=== PATIENT | female | born 1950 | race Caucasian/White ===

== ENCOUNTER → 2017-06-20 | Outpatient (CLI) | payer OTHER ==
--- NOTE | 2017-06-21 07:38 | PAP/PSG TECHNICIAN REPORT ---
[facility] Customer Support Manager Polysomnogram Report Study name: None Report date: 06/21/2017 Study date: 06/20/2017 Referring Physician: Migdalia Barber Name: TRACI ENNIS Interpreting Physician: Elsie Harkins M.D. Date of : 1950 Customer Support Manager: Samantha Fontana, PSGT. Sex: Female Age: 67 StudyType: PSG Weight: 222 lbs Height: 67 years, Height 5' 2" Neck Circum:16 inches BMI: 40.6 Medications: Lipitor 10 mg, Vit.D3 2000 units, Cortizone -10, Levoxyl 100 mcg, Potassium Choride ER 10 meq. Patient History 67 year old female with mild GUERO, she is using c-pap at this time @ a rate of 7 cm H20, patient states that she still wakes tired and naps throughout the day. This study was ordered to start at a rate of 5 cm, evaluate oxygen needs as per Medicare guide lines.Ess= 7, Neck = 16 inches Parameters Monitored NPSG: E1-M2, E2-M1, Fp1-M2, Fp2-M1, F3-M2, F4-M2, F4-M1, C3-M2, C4-M2, C4-M1, O1-M2, O2-M2, O2-M1, T3-M2, T4-M1, P3-M2, P4-M1, CHIN1, CHIN2, HR, EKG, Legs, PFLOW, SNOR, FLOW, CFLOW, Tidal Volume, THOR, ABDO, SpO2, PLTH, CPRESS, ETCO2 Wave, ETCO2, pH Sleep Architecture Sleep Stages Time at Lights Off 11:03:46 PM STAGES Time (min.) TST (%) Time at Lights On 5:25:46 AM Wake 17.0 -- Total Recording Time (TRT) 382.00 min. N1 7.0 2 Total Sleep Period (TSP) 373.0 min. N2 243.5 67 Total Sleep Time (TST) 365.0min. N3 36.0 10 Awake Time 17.0 min. REM 78.5 22 Wake after Sleep Onset 8.0 min. Sleep Efficiency (SE) 96 % Sleep Onset Latency (ELENITA) 9.0 min. Number of Stage 1 Shifts None Awakenings 7 Stage Changes 42 Number of REM periods 7 REM 78.5 22 REM Latency 52.5 min. NREM 286.5 78 Body Position Analysis Supine Right Left Side Prone Vertical Total Sleep Time (min.) 381.5 0.0 0.0 0.00 0.0 0.5 Total Sleep Time (%) 100% 0% 0% 0 0% N/A% Total Sleep Time REM (min.) 78.5 0.0 0.0 None 0.0 0.0 Total Sleep Time NREM (min.) 286.5 0.0 0.0 None 0.0 0.0 Intermittent Wake (min.) 16.5 0.0 0.0 None 0.0 0.5 Total Sleep Period (%) 100% None None None None None Arousals Myoclonus (PLM) * Events Count Index Events Count Index Spontaneous 47 8 Events Awake (PLMW) 0 0.0 Respiratory 0 0.0 Events Asleep w/ Arousal (PLMA) 23 3.8 PLM 23 4 Events Asleep w/o Arousal (PLMS) 172 28.3 Snoring 12 2 Total Asleep 195 32.1 Total 82 13 Total 195 31 Respiratory Analysis * CA OA MA CH H RERA Total Count 0 0 0 0 6 0 6 Index 0.0 0.0 0.0 0 1.0 0 1.0 Mean Duration 0.0 0.0 0.0 0.00 13.5 0.0 13.5 Longest Duration 0.0 0.0 0.0 0.00 0.0 0.0 15.7 Respiratory Event Summary Total Supine ~Supine Right Left Prone REM NREM Apneas Count 0 0 N/A N/A N/A N/A 0 0 Index 0.0 0 N/A N/A N/A N/A 0 0 Hypopneas (4% Desat) Count 6 6 N/A N/A N/A N/A 2 4 Index 1.0 1.0 N/A N/A N/A N/A 1.5 0.8 Apneas & All Hypopneas Count 6 6 N/A N/A N/A N/A 2 4 Index 1.0 1 N/A N/A N/A N/A 1.5 0.8 Respiratory Events ([employer]+All Hyp+RERA) Count 6 6 N/A N/A N/A N/A 2 4 Index 1.0 1 N/A N/A N/A N/A 1.5 0.8 Respiratory Related Arousal Count 0 6 N/A N/A N/A N/A 0 0 Index 0.0 0 N/A N/A N/A N/A 0 0 Snoring Analysis Supine Right Left Prone REM NREM Total Snore duration 4.5 min Snores count 114 N/A N/A N/A 4 110 114 Snore mean duration 2.4 Sec Snores index 19 N/A N/A N/A 3.1 23.0 18.7 TST with snoring (%) 1.2% Desaturation Event Summary: Minimum %SpO2 Event Count Mean/Min/Max Duration(sec.) Desaturation Index % Time In Bed > 90 18 29.5 / 12.0 / 53.3 3.2 87.3 86 - 90 1 12.8 / 12.8 / 12.8 1.2 12.7 81 - 85 0 N/A 0.0 0.0 76 - 80 0 N/A 0.0 0.0 71 - 75 0 N/A 0.0 0.0 66 - 70 0 N/A 0.0 0.0 61 - 65 0 N/A 0.0 0.0 56 - 60 0 N/A 0.0 0.0 51 - 55 0 N/A 0.0 0.0 < 50 0 N/A 0.0 0.0 Total REM NREM Awake <50% 0.0 min. 0.0 min. 0.0 min. 0.0 min. 51 - 60% 0.0 min. 0.0 min. 0.0 min. 0.0 min. 61 - 70% 0.0 min. 0.0 min. 0.0 min. 0.0 min. 71 - 80% 0.0 min. 0.0 min. 0.0 min. 0.0 min. 81 - 90% 48.7 min. 20.5 min. 28.2 min. 0.0 min. 91 - 100% 333.1 min. 57.9 min. 258.4 min. 16.9 min. Average 92 91 92 93 Minimum SpO2 88 88 88 91 Desaturation Event Index 2.8 7.6 1.7 0.0 # Desat. Events below 89% 2 0 2 N/A Time(%) with Saturation below 89% 0.3 0.3 0.1 0.0 Time(min.) with Saturation below 89% 1.3 1.1 0.3 0.0 Heart Rate Analysis End Tidal CO2 Analysis Min (bpm) Max (bpm) Average (bpm) TSP (mins) % of TSP Awake 45 69 53 Above 55 mmHg 0.0 0.0 NREM 42 67 50 50-55 mmHg 0.0 0.0 REM 39 69 49 45-50 mmHg 365.0 100.0 Overall 39 69 50 40-45 mmHg 0.0 0.0 35-40 mmHg 0.0 0.0 30-35 mmHg 0.0 0.0 Average ETCO2 0.0 Supplemental O2 Values Minimum O2 level: None Value Start Time End Time Customer Support Manager Comments PAP Study: MS. Ennis slept in the supine positions. No cardiac arrhythmia,PLM's noted. No bruxism noted. CPAP was initiated at +5 CMH2O and up-titrated to an optimal level of +7 CMH2O, which nearly eliminated all respiratory events and snoring. Patient used her mask during titration Ms. Ennis awoke to use the restroom zero times during the night. Ms. Ennis stated, I did sleep as well as I do when I am in my own bed. The final report will be interpreted and signed by a sleep physician. The completed physician report will then be placed in the patient medical record. Therapy Event: Therapy (cm H20) 5 6 7 Total Time at Pressure (min.) 188.7 122.0 71.3 TST at Pressure (min.) 176.7 119.5 68.8 # Periods 1 1 1 Sleep Onset (min.) 9.0 0.0 0.0 REM Onset (min.) 61.5 39.3 7.8 Sleep Efficiency % 93 98 96 Wakefulness (%) 6.4 2.0 3.5 Wakefulness (min.) 12.0 2.5 2.5 NREM 1 (%) 2.1 2.0 0.7 NREM 1 (min.) 4.0 2.5 0.5 NREM 2 (%) 56.8 78.7 56.5 NREM 2 (min.) 107.2 96.0 40.3 NREM 3 (%) 17.8 2.0 0.0 NREM 3 (min.) 33.5 2.5 0.0 REM (%) 17.0 15.2 39.3 REM (min.) 32.0 18.5 28.0 # Arousals 39 33 10 Arousal Index 13.2 16.6 8.7 # Snore 47 58 9 Snore Index 16.0 29.1 7.8 AHI 1.4 0.5 0.9 AHI Supine 1.4 0.5 0.9 AHI Non-Supine N/A N/A N/A NREM AHI 1.2 0.6 0.0 REM AHI 1.9 0.0 2.1 RDI 1.4 0.5 0.9 # Obstructive 0 0 0 # Central Ap 0 0 0 # Mixed 0 0 0 # Hypopneas 4 1 1 RERAS 0 0 0 Total Respiratory Events 4 1 1 Time Below SpO2 89.00% (min.) 1.3 0.0 0.0 Mean NREM SpO2 (%) 92 91 92 Mean REM SpO2 (%) 91 91 91 Mean Sleep SpO2 (%) 92 91 91 Min NREM SpO2 (%) 88 89 89 Min REM SpO2 (%) 88 89 89 Position Supine (min.) 176.7 119.5 68.8 Position Non-supine (min.) 0.0 0.0 0.0 LM Index Sleep 37.0 30.6 21.8 LM Index NREM 38.2 33.9 23.5 LM Index REM 31.9 13.0 19.3 Mean Heart Rate (bpm) 52 48 46 Min Heart Rate (bpm) 42 43 39
== END | disposition home or self-care (01) ==
LOC: C.NEUR 20:00
PROVIDERS: ATTEND Nurse Practitioner Family
DX: G47.33 Obstructive sleep apnea (adult) (pediatric) (principal)